=== PATIENT | male | born 1985 | race Caucasian/White ===

== ENCOUNTER 2023-02-23 19:51 | Emergency (ER) | payer OTHER ==
[~2023-02-23] VITALS: Ht 182.9 cm; Wt 81.1 kg
[2023-02-23 19:54] VITALS: BP 128/66; TEMP 97.4; O2SAT 98
[2023-02-23] MEDS ORDERED: AUGMENTIN 875 MG TAB PO ONE (22:10)
[2023-02-23] MEDS ORDERED: IBUPROFEN 600MG TAB PO ONE (22:10)
[2023-02-23] MEDS ORDERED: IBUP-1022 PO (22:12)
[2023-02-23] MEDS ORDERED: AMOX875T2 PO (22:12)
== END 2023-02-23 22:19 | disposition home or self-care (01) ==
LOC: M ED 19:51
DX: K04.7 Periapical abscess without sinus (principal)

== ENCOUNTER → 2023-08-06 | Outpatient (CLI) | payer OTHER ==
[~2023-08-06] MED LIST: AMOX875T2 PO; IBUP-1022 PO
[2023-08-06 13:12] LABS: BASO # 0.1 10^3/uL (0.0-0.2); BASO % 1.5 % (0.0-1.0); EOS # 0.3 10^3/uL (0.0-0.5); EOS % 3.6 % (0.0-3.0); HEMATOCRIT 46.2 % (42.0-52.0); HEMOGLOBIN 15.3 g/dl (13.5-17.5); LYMPH # 2.3 10^3/uL (1.5-5.0); LYMPH % 32.1 % (24.0-44.0); MEAN CORPUSCULAR HGB CONC 33.1 g/dl (32.0-36.5); MEAN CORPUSCULAR VOLUME 87.7 fl (80.0-96.0); MONO # 0.5 10^3/uL (0.0-0.8); MONO % 6.5 % (2.0-8.0); NEUTROPHILS # 4.1 10^3/uL (1.5-8.5); PLATELET COUNT, AUTOMATED 245 10^3/uL (150-450); RED BLOOD COUNT 5.27 10^6/uL (4.30-6.10); WHITE BLOOD COUNT 7.3 10^3/uL (4.0-10.0)
[2023-08-06 17:00] LABS: HEMOGLOBIN A1c 5.2 % (4.0-6.0)
[2023-08-06 17:42] LABS: C REACTIVE PROTEIN QUANTITATIV < 0.40 MG/DL (<1.0)
[2023-08-06 17:44] LABS: ALBUMIN 4.3 G/DL (3.2-5.2); ALKALINE PHOSPHATASE 84 U/L (46-116); ALT/SGPT 22 U/L (7.0-40); AST/SGOT 13 U/L (<34); BILIRUBIN,TOTAL 0.4 MG/DL (0.3-1.2); BLOOD UREA NITROGEN 15 MG/DL (9-23); CALCIUM LEVEL 9.1 MG/DL (8.5-10.1); CARBON DIOXIDE LEVEL 30 MMOL/L (20-31); CHLORIDE LEVEL 105 MMOL/L (98-107); CHOLESTEROL LEVEL 129 MG/DL (<200); CHOLESTEROL RISK RATIO 2.69 (<5); CREATININE FOR GFR 0.74 MG/DL (0.70-1.30); FREE T4 1.07 NG/DL (0.89-1.76); GLOMERULAR FILTRATION RATE > 60.0 (>60); GLUCOSE, FASTING 84 MG/DL (60-100); HDL CHOLESTEROL 47.9 MG/DL (>40); LDL CHOLESTEROL 68.7 MG/DL (<100); NON-HDL-C 81.1 MG/DL; POTASSIUM SERUM 4.5 MMOL/L (3.5-5.1); SODIUM LEVEL 139 MMOL/L (136-145); THYROID STIMULATING HORMONE 1.756 uIU/ML (0.55-4.78); TOTAL 25(OH) VITAMIN D 31.9 NG/ML (20.0-100.0); TOTAL PROTEIN 6.8 G/DL (5.7-8.2); TRIGLYCERIDES LEVEL 62 MG/DL (<150); VITAMIN B12 LEVEL 483 PG/ML (211-911)
[2023-08-06 17:52] LABS: HEPATITIS B SURFACE ANTIBODY POSITIVE (POSITIVE)
[2023-08-06 18:18] LABS: HIV 1&2 SCREEN NEGATIVE (NEGATIVE)
[2023-08-06 18:27] LABS: HEPATITIS B CORE ANTIBODY IGM NEGATIVE (NEGATIVE); HEPATITIS C VIRUS ABY INDEX < 0.02 INDEX (<0.8)
== END ==
LOC: M PLALAB 10:37
PROVIDERS: ATTEND Internal Medicine Hematology
DX: Z00.00 Encounter for general adult medical examination without abnormal findings (principal)

== ENCOUNTER 2023-12-23 20:15 | Emergency (ER) | payer OTHER ==
[~2023-12-23] VITALS: Ht 180.3 cm; Wt 85.4 kg
[2023-12-24 00:14] VITALS: BP 112/62; TEMP 97.7; O2SAT 95
[2023-12-24] MEDS: IBUPROFEN 600MG TAB PO ONE (01:30)
== END 2023-12-24 01:58 | disposition home or self-care (01) ==
LOC: M ED 20:15
DX: S63.92XA Sprain of unspecified part of left wrist and hand, initial encounter (principal); Y92.9 Unspecified place or not applicable; Y93.9 Activity, unspecified; Y99.0 Civilian activity done for income or pay; F17.210 Nicotine dependence, cigarettes, uncomplicated; F10.10 Alcohol abuse, uncomplicated; Z79.1 Long term (current) use of non-steroidal anti-inflammatories (NSAID); Z79.2 Long term (current) use of antibiotics

== ENCOUNTER → 2024-04-27 | Outpatient (REF) | payer OTHER | LOC: M SFHCPLAZ 09:46 | PROVIDERS: ATTEND Student in an Organized Health Care Education/Training Program | DX: L72.0 Epidermal cyst (principal) ==

== ENCOUNTER 2024-07-03 18:17 | Emergency (ER) | payer OTHER ==
[~2024-07-03] VITALS: Ht 182.9 cm; Wt 87.9 kg
[2024-07-03 18:23] VITALS: BP 154/94; TEMP 97.2; O2SAT 96
[2024-07-03] MEDS ORDERED: AMOX875T2 PO (20:35)
== END 2024-07-03 20:39 | disposition home or self-care (01) ==
LOC: M ED 18:17
DX: R68.84 Jaw pain (principal); F19.10 Other psychoactive substance abuse, uncomplicated; Z91.018 Allergy to other foods; Z79.2 Long term (current) use of antibiotics